=== PATIENT | male | born 1955 | race Caucasian/White ===

== ENCOUNTER 2024-06-30 12:49 | Inpatient (IN) | payer MEDICARE, OTHER, SELFPAY ==
[2024-06-27 13:29] VITALS: BP 161/79
--- NOTE | 2024-06-27 15:05 | EDRN ---
Pt arrives from triage area while this RN in CT w/ critical pt so this RN accepts care of pt at this time.
--- NOTE | 2024-06-27 15:44 | ED.GENMED ---
Addendum entered and electronically signed by Avila Sheriff DO 06/27/24 22:42:
69-year-old male who presents with double vision. Recently with a right lower lid stye and seen by his doctor started him on antibiotics and drops. He then started noticed double vision. Exam: He does have a left lid lag. He also has a slight
lag with medial movement of his left eye as well as slight asymmetry looks in a upward direction consistent with L 3rd nerve palsy. a/p: CTA neg for aneurysm, BG neg. admit for MR as per neurology
Original Note:
History of Present Illness
<Dru Bobby PA-C - Last Filed: 06/27/24 21:23>
General
Chief Complaint: Eye Problems
Source: patient
Exam Limitations: none
Time Seen by Provider: 06/27/24 15:07
History of Present Illness
History of Present Illness:
69-year-old male with stye to the right eye for several days was recently started on doxycycline pills and drops. Over the past 2 days has noticed double vision out of both eyes. He notes a slight headache. He also notes some dizziness. He
closes either eye the double vision goes away. Double vision seems to be only in certain positions or looking certain directions. No unilateral numbness or weakness or slurred speech. No fever. No other complaints
Past History
<Dru Bobby PA-C - Last Filed: 06/27/24 21:23>
Social History
Tobacco: Non-smoker
Personal:
Phy Exam
<Dru Bobby PA-C - Last Filed: 06/27/24 21:23>
Physical Exam
Physical Exam:
General: Well-appearing male no acute respiratory distress
HEENT: Normocephalic atraumatic pupils equal round reactive to light extract motions are intact. Right eye seems to be held open more so than the left eye. There is no facial asymmetry otherwise. There is a larger stye noted over the medial
aspect of the lower lid of the right eye no surrounding erythema or swelling
Neurologic exam: Good strength to the upper and lower extremities no dysarthria or aphasia no drift no visual field cut
Heart: Regular rate and rhythm
Lungs: Clear no wheeze
Course
<Dru Bobby PA-C - Last Filed: 06/27/24 21:23>
Orders/Labs/Results
Orders:
Orders
06/27/24 13:[address] [CT Head W/o Iv Contrast] Urgent
Comment:
Reason For Exam: double vision/ headache
06/27/24 17:43
CT Head & Neck Angio W/wo IV Urgent
Reason For Exam: double vision
06/27/24 18:24
Basic Metabolic Panel Urgent
Complete Blood Count/With Diff Urgent
Abnormal Lab Results
06/27/24
18:24
Monocytes % 9.6 H %
(1.7-9.3)
Glucose 105 H mg/dl
(70-99)
06/27/24 18:24
06/27/24 18:24
Vital Signs
Initial and Last Documented VS:
Initial Vital Signs
Temp Pulse Resp BP Pulse Ox
98.4 F 65 20 161/79 96
06/27/24 13:29 06/27/24 13:29 06/27/24 13:29 06/27/24 13:29 06/27/24 13:29
Last Documented Vital Signs
Temp Pulse Resp BP Pulse Ox
97.7 F 62 22 152/83 93
06/27/24 21:05 06/27/24 21:05 06/27/24 21:05 06/27/24 21:05 06/27/24 21:05
<Avila Sheriff DO - Last Filed: 06/27/24 16:42>
Orders/Labs/Results
Orders:
Orders
06/27/24 13:[address] [CT Head W/o Iv Contrast] Urgent
Comment:
Reason For Exam: double vision/ headache
06/27/24 17:43
CT Head & Neck Angio W/wo IV Urgent
Reason For Exam: double vision
06/27/24 18:24
Basic Metabolic Panel Urgent
Complete Blood Count/With Diff Urgent
Abnormal Lab Results
06/27/24
18:24
Monocytes % 9.6 H %
(1.7-9.3)
Glucose 105 H mg/dl
(70-99)
06/27/24 18:24
06/27/24 18:24
Vital Signs
Initial and Last Documented VS:
Initial Vital Signs
Temp Pulse Resp BP Pulse Ox
98.4 F 65 20 161/79 96
06/27/24 13:29 06/27/24 13:29 06/27/24 13:29 06/27/24 13:29 06/27/24 13:29
Last Documented Vital Signs
Temp Pulse Resp BP Pulse Ox
97.7 F 62 22 152/83 93
06/27/24 21:05 06/27/24 21:05 06/27/24 21:05 06/27/24 21:05 06/27/24 21:05
<Dru Bobby PA-C - Last Filed: 06/27/24 21:23>
MDM/Problems Addressed
Differential Diagnosis Includes:
Patient complains of double vision. Question this issue related to the large stye of the lower lid versus recent medication change versus CVA
No objective findings on exam of weakness or entrapment of eye muscles. No evidence of cranial nerve palsy
CT of head ordered through triage is negative.
<Dru Bobby PA-C - Last Filed: 06/27/24 21:23>
*Critical Care Note
Total Time (30-74mins, 75-104mins- exclusive of procedures): Not Applicable
<Dru Bobby PA-C - Last Filed: 06/27/24 21:23>
Update Note
Update Note:
CT head negative discussed with emergency room attending. Ordered CTA of head and neck which was also reviewed as no acute findings. Incidentally noted there is a 2 cm rim calcified lesion in the substernal chest. Discussed with neurology. Given
the new onset diplopia and exam findings suspicious of cranial nerve III palsy will admit to hospital for further workup including MRI
ED Attending Note
<Dru Bobby PA-C - Last Filed: 06/27/24 21:23>
-
Portions of this chart may have been created with voice recognition software.� Occasional wrong word or��sound alike� substitutions may have occurred due to the inherent limitations of voice recognition software.
<Avila Sheriff DO - Last Filed: 06/27/24 16:42>
ED Attending Note
Patient seen and examined by attending physician: Yes
I performed the substantive portion of visit, reviewed & personally made and approve the management plan that is documented in note by myself or TAM.: Yes
Discharge Plan
Departure
Patient Disposition: Admit
Date of Disposition: 06/27/24
Time of Disposition: 21:22
Admit to: Telemetry
Presentation/result/management discussed w/ accepting MD/: Hospitalist
Discharge Problem:
Cranial nerve III palsy
Prescriptions:
No Action
No Current Medications
Referrals:
Raheem Valladares DO [Family Provider] -
Interventions
Interventions:
*Risk Screen - Suicide Last Done: 06/27/24 13:29
*General Assessment Last Done: 06/27/24 16:21
*Neglect/Abuse Screening Last Done: 06/27/24 13:29
ED- Fall Risk Assessment Last Done: 06/27/24 16:23
*ED COVID-19 Vaccine History Last Done: 06/27/24 16:21
Discharge Date and Time
Print Language: SURINAMESE
[2024-06-27 16:20] VITALS: BMI 29.6
[2024-06-27 16:23] VITALS: BP 141/80
[2024-06-27 18:29] LABS: % Basophils 0.7 % (0-2); % Eosinophils 4.8 % (0-6); % Immature Granulocytes 0.3 % (0-0.5); % Monocytes 9.6 % (1.7-9.3); % Neutrophils 50.6 % (42.2-75.2); Absolute Eosinophils 0.3 10^3/uL (0-0.7); Absolute Monocytes 0.6 10^3/uL (0.1-0.6); Hematocrit 44.5 % (39.0-52.0); Hemoglobin 14.7 g/dL (13.0-18.0); Mean Corpuscular Hgb 30.6 pg (27.0-31.0); Mean Corpuscular Volume 92.7 fL (80.0-94.0); Mean Platelet Volume 9.3 fL (7.4-10.4); Nucleated Red Blood Cells % 0 % (-); Platelet Count 232 10^3/uL (130-400); Red Cell Dist. Width 12.9 % (11.5-14.5); White Blood Cell Count 5.9 10^3/uL (4.8-10.8)
[2024-06-27 19:08] LABS: Blood Urea Nitrogen 19 mg/dl (9-20); Calcium 9.4 mg/dl (8.4-10.2); Carbon Dioxide 27 mmol/L (22-30); Chloride 101 mmol/L (98-107); Estimated Creatinine Clearance 114 ml/min; Glucose 105 mg/dl (70-99); Sodium 135 mmol/L (135-145); eGFR > 60.00
[2024-06-27 21:05] VITALS: BP 152/83
--- NOTE | 2024-06-27 22:37 | HPS.HSE ---
Family Physician
-
Family Physician: Raheem Valladares
Chief Complaint
-
double vision
History of Present Illness
HPI
69M Non smoker , Otherwise healthy seen at ER
- stye to the right eye for several days was recently started on doxycycline pills and drops.
- Over the past 2 days has noticed double vision out of both eyes.
- notes a slight headache and some dizziness.
- the double vision goes away with closed eyes
- Double vision seems to be only in certain positions or looking certain directions.
ROS
No unilateral numbness or weakness or slurred speech.
No fever.
No other complaints
Medical History
Past Medical History
Past Medical History: Reports None
Past Surgical History: Reports None
Social History
Tobacco: Non-smoker
Alcohol: None
Drug: None
Family History
Family History: Not pertinent
Allergies / Home Medications
Allergies reflects when Allergies were last updated in [facility].
Home Medications with original date entered in [facility]
Allergy/Medication List:
Allergies
Allergy/AdvReac Type Severity Reaction Status Date / Time
Penicillins Allergy Hives Verified 06/27/24 13:29
Home Medications
doxycycline hyclate 100 mg capsule 100 mg PO BID 06/27/24
lysine 1,000 mg tablet 1,000 mg PO DAILY 06/27/24
ofloxacin 0.3 % eye drops 2 drp RIGHT EYE QID 06/27/24
Review of Systems
-
Constitutional: Reports No Symptoms
EENT: Reports See HPI
Respiratory: Reports No Symptoms
Cardiac: Reports No Symptoms
Abdomen/GI: Reports No Symptoms
: Reports No Symptoms
Musculoskeletal: Reports No Symptoms
Skin: Reports No Symptoms
Neurological: Reports No Symptoms
Endocrine: Reports No Symptoms
Hematologic/Lymphatic: Reports No Symptoms
Psych: Reports No Symptoms
Physical Exam
Vital Signs
Vital Signs
Temp Pulse Resp BP Pulse Ox
97.7 F 62 22 152/83 93
06/27/24 21:05 06/27/24 21:05 06/27/24 21:05 06/27/24 21:05 06/27/24 21:05
Physical Exam
General: Well Developed, Well Nourished and No Apparent Distress
HEENT: Other (- Normocephalic atraumatic - pupils equal round reactive to light extract motions are intact. - Right eye: to be held open more so than the left eye. - No facial asymmetry otherwise. - There is a larger stye noted over the
medial aspect of the lower lid of the right eye no surrounding erythem)
Respiratory: Clear
Cardiac: S1/S2 and Regular Rhythm; No Murmur or Rub
GI: Soft, Non Tender, Non Distended and Normal Bowel Sounds; No Organomegaly
Rectal: Deferred by Provider
Musculoskeletal: No Clubbing, No Cyanosis and No Edema
Skin: No Rash
Neuro: Nonfocal/grossly intact
Laboratory Results
-
06/27/24 18:24
06/27/24 18:24
Laboratory Results
Total Bilirubin Cancelled 06/27/24 18:24
AST Cancelled 06/27/24 18:24
ALT Cancelled 06/27/24 18:24
Alkaline Phosphatase Cancelled 06/27/24 18:24
Data Reviewed
-
CT Scan: Report Reviewed by me
Lab Data: Labs Reviewed by me
Impression/Plan
-
Data
Abnormal Lab Results
24
18:24
Monocytes % 9.6 H
Glucose 105 H
Unremarkable CBC and CMP
BG [address] Head W/o Iv Contrast
- No acute intracranial abnormality.
CT Head & Neck Angio W/wo IV
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 The etiology of this mass is uncertain and this may be secondary to trauma.
The study is otherwise normal
Last hospitalist admission was in 2012
ASSESSMENT & PLAN
New onset Lt eye diplopia with ptosis
Concern for cranial nerve III palsy
- MRI Brain in AM suggested by Neuro d/w ER attd
- Lipids , A1C
- Hold off on ASA
- Neuro consulted
Hordeolum (stye) of Rt Eye lower lid with yellow exudate
- warm wet clot compression 10 Mins - 4times daily
- AVOID attempt to squeeze the stye
- 0.3 % Ofloxacin oint
DVT Px: SCD
Code: Full
Obs TLM
--- NOTE | 2024-06-27 23:30 | PTCARENOTE ---
Patient admitted to unit for concern for cranial III Nv palsy & R eye stye. Patient is AAO x3. Monitored on tele. Neuro checks/NIH assessment q4h for 24 h. Reviewed home meds & allergies. Patient is ambulatory at baseline & demonstrates safety. No
skin issues at this time.
[2024-06-28] VITALS (8 sets, daily range): BP systolic 138–177; BP diastolic 74–95; BMI 28.7
[2024-06-28 07:28] LABS: HDL Cholesterol 46 mg/dl; LDL Cholesterol, Calculated 116 mg/dl; Total Cholesterol 179 mg/dl (50-199); Triglyceride 88 mg/dl (10-149); Very Low Density Lipoprotein 17 mg/dl (0-30)
--- NOTE | 2024-06-28 08:33 | CON.NEURO ---
Neuro Assessment/Plan
Assessment
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
CT head was unremarkable
Patient with acute onset diplopia and findings of left eye ptosis with reduced upgaze in the left eye, and intact pupillary size
Most likely secondary to myasthenia gravis, potentially unmasked from acute exposure to doxycycline although that is not a typical agent producing myasthenic symptoms. Differential diagnosis would include Lambert-Eaton myasthenic syndrome with the
patient experiencing the substernal mass of unknown etiology
Plan
Check MRI of brain as planned (completed and does not demonstrate significant abnormality)
Check CT of chest due to the substernal mass of unclear etiology, potentially thymoma or other etiology
Restart patient's usual apixaban
Initiate pyridostigmine 60 mg 3 times a day if icepack challenge demonstrates improvement in double vision
Reconsider use of doxycycline based on the above
Check acetylcholine receptor antibodies
Consider initiation of lipid-lowering agent based on the patient's LDL elevation despite the possibility of a myasthenic syndrome
Rehabilitation evaluations
Goal of normotension
DVT prophylaxis
Will follow
Consultation
Order
Date of Consultation: 06/28/24
Requesting Provider: Hospitalists
Reason for Consult: Diplopia
Subjective/Objective
Subjective Data
Date of Service: June 28, 2024
Patient presented to this hospital's emergency department yesterday due to sudden onset diplopia and headache. The patient was initiated days prior to presentation on doxycycline due to a stye in the right eye. He reports that diplopia is worse
with looking upwards and not present with looking downwards. He suggest that the problem is worse in the morning then later in the day. No prior episodes which were similar. No known other modifying factors.
Patient's headache is described as having started days ago on the left side of the head and continuing. The discomfort is described as mild, although unusual as the patient does not typically experience headaches. Patient does describe himself as
having had a vaccination against influenza 1 month ago.
Objective Data
Vital Signs
Temp Pulse Resp BP Pulse Ox
36.6 C 56 18 159/95 97
06/28/24 03:48 06/28/24 03:48 06/28/24 03:48 06/28/24 03:48 06/28/24 03:48
Lab Results
06/27/24 18:24
06/27/24 18:24
Sodium 135 mmol/L (135-145) 06/27/24 18:24
Potassium mmol/L (3.5-5.1) 06/27/24 18:24
BUN 19 mg/dl (9-20) 06/27/24 18:24
Glucose 105 mg/dl (70-99) H 06/27/24 18:24
Calcium 9.4 mg/dl (8.4-10.2) 06/27/24 18:24
LDL Cholesterol, Calc 116 mg/dl 06/28/24 06:32
Patient Allergies
Penicillins Allergy (Verified 06/27/24 13:29)
Hives
Review of Systems
-
History Source: Patient
All other systems: Reviewed and negative
EENT: Blurry Vision; Negative Swallowing Difficulty
Respiratory: Negative Trouble Breathing
Cardiac: Negative Chest Pain
Abdomen/GI: Negative Incontinence of Stool
Genitourinary: Negative Incontinence
Musculoskeletal: Negative Back Pain or Neck Pain
Skin: Negative Rash
Neuro: Headache (started ); Negative Dizzy
Physical Exam
-
General: No Apparent Distress and Appears Stated Age
Eyes: Round OU, [place] Conjunctivae and No Ptosis
HEENT: Anicteric and Moist Mucous Membranes
Neck: Full Range of Motion
Respiratory: No Dyspnea
Cardiac: No JVD
GI: Non-distended
Skin: Unremarkable
Extremities: No Clubbing, No Cyanosis and No Edema
Psych: Intact Judgement/Insight
Extended Neurological Exam
Mood & Affect: Mood Unremarkable and Affect Unremarkable
Attention Span & Concentration: Awake, Alert, Interactive and Other (No difficulty with one-step requests)
Memory: Unremarkable
Tremor: Hand Tremor Absent and Head Tremor Absent
Speech: Quality Unremarkable and Quantity Unremarkable
Cranial Nerve II: Left Eye: Pupillary Size Unremarkable and Visual Mahan Grossly Intact
Cranial Nerve II: Right Eye: Pupillary Size Unremarkable and Visual Mahan Grossly Intact
Cranial Nerves III, IV, : Extraocular Movement: Ptosis on Left, Reduced (Left eye upgaze by approximately 50%) and Otherwise Unremarkable; Negative Ptosis on Right
Cranial Nerve VII: Facial Symmetry: Normal Facial Symmetry
Cranial Nerve VIII: Hearing: Unremarkable Hearing to Normal Conversational Volume
Cranial Nerve XI: Shoulder Shrug: Unremarkable
Muscle Strength, Overall: Full in Upper Extremities
Muscle Bulk & Tone: Bulk Unremarkable and Tone Unremarkable
Pronator Drift: No Drift in Upper Extremities
Touch Sensation: Unremarkable
Coordination: Reaches for Objects without Difficulty
Gait & Station: Unremarkable Arm Swing; Negative Wide Based
Data Reviewed
-
CT-A: Report Reviewed
CT Head: Report Reviewed
MRI Head: Report Reviewed and Image Reviewed
Labs: Ordered, Pending and Report Reviewed
Reviewed with: Physician and Patient
Old Records: Summarized
Medications
-
Active Medications
Generic Name Dose Route Start Last Admin
Trade Name Freq PRN Reason Stop Dose Admin
Acetaminophen 650 mg 06/28/24 00:22
Acetaminophen 650 Mg Rectal Suppository RECTAL 07/26/24 00:21
Q4HPRN PRN
HASKINS, mild pain, or temp >100.4F
Acetaminophen 650 mg 06/28/24 00:22
Acetaminophen 325 Mg Tablet PO 07/26/24 00:21
Q4HPRN PRN
HASKINS, mild pain, or temp >100.4F
Doxycycline Hyclate 100 mg 06/28/24 08:00
Doxycycline 100 Mg Capsule PO
BID MILLER
Ofloxacin 2 drop 06/28/24 08:00
Ofloxacin 0.3% (Ophthalmic Solution) 5 Ml Bottle RIGHT EYE 07/26/24 07:59
QID MILLER
Sodium Chloride 0 flush 06/28/24 01:00
Sodium Chloride 0.9% (Flush) Syringe IV 07/26/24 00:59
PER PROTOCOL MILLER
Home Medications
�Medication �Instructions �Recorded
apixaban 2.5 mg tablet (Eliquis) 2.5 mg PO BID Heart 06/27/24
Disease/Condition
doxycycline hyclate 100 mg capsule 100 mg PO BID Infection 06/27/24
lysine 1,000 mg tablet 1,000 mg PO DAILY Supplement 06/27/24
ofloxacin 0.3 % eye drops 2 drp RIGHT EYE QID Eye Condition 06/27/24
Past History
Past History
ED Past Medical History: Other (Esophageal stenosis with dilatation procedures beginning in 1992, DVT 2012, varicose veins)
Social History
Tobacco: Non-smoker
Personal:
Family History
Family History: Other (Reviewed and noncontributory)
[2024-06-28] MEDS: OCUFLOX 2 DROP RIGHT EYE ×4 (08:34→21:25)
[2024-06-28 09:29] LABS: ALT (SGPT) 30 U/L (0-50); AST (SGOT) 24 U/L (17-59); Albumin 4.2 g/dl (3.5-5.0); Alkaline Phosphatase 66 U/L (38-126); Blood Urea Nitrogen 16 mg/dl (9-20); Calcium 9.2 mg/dl (8.4-10.2); Carbon Dioxide 27 mmol/L (22-30); Chloride 102 mmol/L (98-107); Estimated Creatinine Clearance 100 ml/min; Glucose 142 mg/dl (70-99); Potassium 4.5 mmol/L (3.5-5.1); Sodium 137 mmol/L (135-145); Total Bilirubin 1.4 mg/dl (0.2-1.3); Total Protein 6.9 g/dl (6.3-8.2); eGFR > 60.00
[2024-06-28 09:51] LABS: Erythrocyte Sed Rate 3 mm/hour (0-20)
[2024-06-28 12:00] LABS: TSH Reflex To Free T4 1.93 uIU/ml (0.47-4.68)
--- NOTE | 2024-06-28 12:07 | CM ---
CM reviewed chart, consult received for stroke/tia. Patient seen bedside, initial assessment completed. Patient resides with his in a split level home, no steps to enter. Patient denies DME, VN, or SNF. Patient confirms PCP Raheem Valladares,
pharmacy [facility], confirms prescription coverage. Patient denies insecurities at home. FOY form verbally reviewed, provided with copy, placed in chart. CM will continue to follow for all discharge planning needs.
Plan; home no needs anticipated.
--- NOTE | 2024-06-28 12:14 | PTOTSP ---
Speech Therapy
Presentation: Patient was oriented and willing to participate. Patient's speech, language and cognition appeared to be WNL. Patient denied any difficulty other than his double vision.
Swallowing Function: Patient was observed with several bites of cracker and sips of thin liquids (straw) in which patient appeared to tolerate as he did not exhibit any overt clinical s/sx of aspiration or difficulty with mastication/ manipulation.
Patient denied any dysphagia complaints.
Per RN, patient tolerated medications whole with thin liquids.
Recommendations:
1) Regular consistency solids and thin liquids
2) Standard aspiration precautions
3) Medications as tolerated
Plan: No further LASER/ELECTRO OPTICS TECHNICIAN intervention is indicated at this time; LASER/ELECTRO OPTICS TECHNICIAN will sign off.
[2024-06-28 13:39] LABS: Folate 8.1 ng/ml (2.76-20); Vitamin B12 289 pg/ml (239-931)
--- NOTE | 2024-06-28 14:01 | W.PN.HOSP.TC ---
Today's Communication/Plan
-
seeplan above
Assessment / Plan
Assessment / Plan
New onset Lt eye diplopia with ptosis
Concern for cranial nerve III palsy vs MG
- MRI Brain no stroke
- Lipids , A1C
- Hold off on ASA
- Neuro input noted
- Getting ACH ab testing and starting on pyridostigmine
Hordeolum (stye) of Rt Eye lower lid with yellow exudate
- warm wet clot compression 10 Mins - 4times daily
- AVOID attempt to squeeze the stye
- 0.3 % Ofloxacin oint
- Hold doxy per neuro
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
DVT Px: SCD
Code: Full
Obs TLM
Anticipated Discharge: Within 24 hours
Subjective/Interval History
-
Date of Service: June 28, 2024
Still some diplopia looking upwards noted in left eye
No new symptoms
Denies swallowing difficulties
Objective Data
-
Labs:
Laboratory Results
06/28/24
06:32
Sodium 137
Potassium 4.5
Chloride 102
Carbon Dioxide 27
BUN 16
Creatinine 0.8
Glucose 142 H
Calcium 9.2
Total Bilirubin 1.4 H
AST 24
ALT 30
Alkaline Phosphatase 66
Vital Signs:
Vital Signs
Temp Pulse Resp BP Pulse Ox
97.8 F 64 16 152/87 96
06/28/24 11:56 06/28/24 11:56 06/28/24 11:56 06/28/24 11:56 06/28/24 11:56
I&O
06/27/24 06/28/24 06/29/24
06:59 06:59 06:59
Intake Total 240 / 240
Balance 240 / 240
Review of Systems
-
Constitutional: Denies Fever
Respiratory: Denies Trouble Breathing
Cardiac: Denies Chest Pain
Neuro: Denies Dizzy or Headache
Physical Exam
-
General: Comfortable
HEENT: Moist Mucous Membranes
Respiratory: Non Labored Respirations; Negative Accessory Resp Muscle Use
Cardiac: Regular Rhythm and S1/S2
Neuro: AO x 3, No Motor Deficits and Other (diplopia noted looing to right upper quadrant with eyes open;no nystagmus)
Psych: Calm; Negative Confused
Data Reviewed
-
MRI: Report Reviewed by me (MRI head neg)
[2024-06-28] MEDS: MESTINON 60 MG PO ×3 (14:27→21:25)
[2024-06-29] VITALS (12 sets, daily range): BP systolic 125–155; BP diastolic 62–89
[2024-06-29] MEDS: OCUFLOX 2 DROP RIGHT EYE ×4 (08:41→22:07)
[2024-06-29] MEDS: MESTINON 60 MG PO (08:41)
--- NOTE | 2024-06-29 09:04 | W.PN.NEURO.1 ---
Today's Communication / Plan
-
Will request cardiothoracic surgery evaluation due to the possibility of thymoma with need of resection
May need to hold patient's usual apixaban if the patient undergoes thoracic surgery
Initiated pyridostigmine 60 mg 3 times a day, increase to dose of 90 mg
Will request EMG study with repetitive stimulation to determine if the patient is experiencing either an improvement of strength with stimulation or decrement
Neuro Assessment/Plan
Assessment
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
CT head was unremarkable
Patient with acute onset diplopia and findings of left eye ptosis with reduced upgaze in the left eye, and intact pupillary size
Most likely secondary to myasthenia gravis, potentially unmasked from acute exposure to doxycycline although that is not a typical agent producing myasthenic symptoms. Differential diagnosis would include Lambert-Eaton myasthenic syndrome (LEMS)
with the patient experiencing the substernal mass of unknown etiology
Icepack challenge demonstrated no improvement in double vision
CT of chest suggested substernal mass of unclear etiology, potentially thymoma or other etiology
Plan
Will request cardiothoracic surgery evaluation due to the possibility of thymoma with need of resection
May need to hold patient's usual apixaban if the patient undergoes thoracic surgery
Initiated pyridostigmine 60 mg 3 times a day, increase to dose of 90 mg
Will request EMG study with repetitive stimulation to determine if the patient is experiencing either an improvement of strength with stimulation or decrement
Await acetylcholine receptor antibodies, add VGCC for ? LEMS
Started vitamin B12 replacement due to low level
Consider initiation of lipid-lowering agent based on the patient's LDL elevation despite the possibility of a myasthenic syndrome
Will follow
Subjective/Objective
Subjective Data
Date of Service: June 29, 2024
Worse in AM compared with PM, unchanged
Straining sensation behind eye has improved.
Objective Data
Vital Signs
Temp Pulse Resp BP Pulse Ox
36.9 C 62 16 134/89 97
06/29/24 07:00 06/29/24 07:00 06/29/24 07:00 06/29/24 07:00 06/29/24 07:00
Lab Results
06/27/24 18:24
06/28/24 06:32
Sodium 137 mmol/L (135-145) 06/28/24 06:32
Potassium 4.5 mmol/L (3.5-5.1) 06/28/24 06:32
BUN 16 mg/dl (9-20) 06/28/24 06:32
Glucose 142 mg/dl (70-99) H 06/28/24 06:32
Calcium 9.2 mg/dl (8.4-10.2) 06/28/24 06:32
LDL Cholesterol, Calc 116 mg/dl 06/28/24 06:32
Vitamin B12 289 pg/ml (239-931) 06/28/24 06:32
Patient Allergies
Penicillins Allergy (Verified 06/27/24 13:29)
Hives
Review of Systems
-
History Source: Patient
All other systems: Reviewed and negative
EENT: Other (diplopia); Negative Decreased Vision or Swallowing Difficulty
Respiratory: Negative Trouble Breathing
Cardiac: Negative Chest Pain
Abdomen/GI: Negative Incontinence of Stool
Genitourinary: Negative Incontinence
Neuro: Negative Dizzy or Headache
Physical Exam
-
General: No Apparent Distress and Appears Stated Age
Eyes: Round OU, [place] Conjunctivae and No Ptosis
HEENT: Anicteric and Moist Mucous Membranes
Neck: Full Range of Motion
Respiratory: No Dyspnea
Cardiac: No JVD
GI: Non-distended
Skin: Unremarkable
Extremities: No Clubbing, No Cyanosis and No Edema
Psych: Intact Judgement/Insight
Extended Neurological Exam
Mood & Affect: Mood Unremarkable and Affect Unremarkable
Attention Span & Concentration: Awake, Alert, Interactive and No Difficulty with 2 Step Request
Memory: Unremarkable
Tremor: Hand Tremor Absent and Head Tremor Absent
Speech: Quality Unremarkable and Quantity Unremarkable
Cranial Nerve II: Left Eye: Pupillary Size Unremarkable and Visual Mahan Grossly Intact
Cranial Nerve II: Right Eye: Pupillary Size Unremarkable and Visual Mahan Grossly Intact
Cranial Nerves III, IV, : Extraocular Movement: Ptosis on Left, Reduced (Left eye upgaze by approximately 25%) and Otherwise Unremarkable; Negative Ptosis on Right
Cranial Nerve VII: Facial Symmetry: Normal Facial Symmetry
Cranial Nerve VIII: Hearing: Unremarkable Hearing to Normal Conversational Volume
Cranial Nerve XI: Shoulder Shrug: Unremarkable
Muscle Strength, Overall: Full in Upper Extremities and Other (Full in neck extensors and neck flexors)
Muscle Bulk & Tone: Bulk Unremarkable and Tone Unremarkable
Touch Sensation: Unremarkable
Coordination: Reaches for Objects without Difficulty
Data Reviewed
-
CT-A: Report Reviewed
MRI Head: Report Reviewed and Image Reviewed
Labs: Report Reviewed
Reviewed with: Physician, Patient and Family
Old Records: Summarized
Past History
Past History
ED Past Medical History: Other (Esophageal stenosis with dilatation procedures beginning in 1992, DVT 2012, varicose veins)
Social History
Tobacco: Non-smoker
Personal:
Family History
Family History: Other (Reviewed and noncontributory)
Medications
-
Medications:
Generic Name Dose Route Start Last Admin
Trade Name Freq PRN Reason Stop Dose Admin
Acetaminophen 650 mg 06/28/24 00:22
Acetaminophen 650 Mg Rectal Suppository RECTAL 07/26/24 00:21
Q4HPRN PRN
HASKINS, mild pain, or temp >100.4F
Acetaminophen 650 mg 06/28/24 00:22
Acetaminophen 325 Mg Tablet PO 07/26/24 00:21
Q4HPRN PRN
HASKINS, mild pain, or temp >100.4F
Doxycycline Hyclate 100 mg 06/28/24 08:00 06/28/24 08:46
Doxycycline 100 Mg Capsule PO Not Given
BID MILLER
Ofloxacin 2 drop 06/28/24 08:00 06/29/24 08:41
Ofloxacin 0.3% (Ophthalmic Solution) 5 Ml Bottle RIGHT EYE 07/26/24 07:59 2 drop
QID MILLER Administration
Pyridostigmine [place] 60 mg 06/28/24 18:00 06/29/24 08:41
Pyridostigmine 60 Mg Tablet PO 07/26/24 17:59 60 mg
QID MILLER Administration
Sodium Chloride 0 flush 06/28/24 01:00
Sodium Chloride 0.9% (Flush) Syringe IV 07/26/24 00:59
PER PROTOCOL MILLER
[2024-06-29 10:35] LABS: Glycohemoglobin (HgbA1c) 6.5 % (4.0-5.6)
--- NOTE | 2024-06-29 11:52 | CONSULT.CT ---
Consultation
-
Date/Time Consultation Requested: 06/29/24
Date/Time Consultation Performed: 06/29/24
Requesting Provider: 1200
Performing Provider: Liz Kang PA-C
Reason for Consultation: Mediastinal mass, possible thymoma
Patient History
Physicians
Family Physician: Dr. Raheem Valladares MD.
Outpatient Balancer: None
Inpatient Balancer: None
History of Present Illness
Vascular Surgeon: Dr. David Foster
Patient is extremely pleasant 69-year-old male with PMH significant for DVT of his left lower extremity in 2012 treated with Xarelto, bilateral varicose veins status post left leg vein stripping performed on 05/[address] Foster, and
esophageal stenosis requiring multiple endoscopies and dilation, most recent 2009.
Patient reports complaints of headache and diplopia starting on , 06/26/2024. He was started on doxycycline secondary to a stye in his right eye a few days prior. He also noted that the diplopia was worse with upward gaze. Patient called
his primary care physician on Sunday, 06/27/20202023 and was referred to the emergency department at [facility]. Workup began with a CT of the head which showed no intracranial abnormality and a CTA of the head and neck revealing a 2 cm
rim calcified substernal mass in the superior mediastinum compressing and narrowing the left subclavian vein. Subsequent CT of the chest with IV contrast revealed a 2.9 cm partially calcified soft tissue attenuation lesion in the anterior superior
mediastinum.
Patient was admitted for further workup and seen in consultation by neurology. With acute onset of diplopia and finding of left eye ptosis with reduced upward gaze and left eye diagnosis points most likely to myasthenia gravis. Patient is
currently being treated with by rivastigmine, immunoglobulin, and high-dose steroids. His Eliquis was resumed on 06/29/2024. CT surgery was consulted to evaluate mediastinal mass for possible thymoma and evaluation for resection.
Past Medical History
Past Medical History: Other
DVT of his left lower extremity in 2012 treated with Xarelto
Bilateral varicose veins status post left leg vein stripping performed on 05/[address] Foster
Esophageal stenosis requiring multiple endoscopies and dilation, most recent 2009.
Past Surgical History
Past Surgical History: Other
Left leg vein stripping performed on 05/[address] Foster
Dental History
Noncontributory
Family History
Mother: at Age (68) and Cause of (Lung cancer)
Father: at Age (70s) and Cause of (Rupture of AAA)
Social History
Alcohol: Occasional (3 beers per week)
Drug: None
Tobacco: Non-Smoker
Personal: (Lives with , has 3 children)
Living: With Spouse
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
Allergies
Allergy/AdvReac Type Severity Reaction Status Date / Time
Penicillins Allergy Hives Verified 06/27/24 13:29
Home Medications
�Medication �Instructions �Recorded �Confirmed �Type
apixaban 2.5 mg tablet (Eliquis) 2.5 mg PO BID Heart 06/27/24 06/27/24 History
Disease/Condition
doxycycline hyclate 100 mg capsule 100 mg PO BID Infection 06/27/24 06/27/24 History
lysine 1,000 mg tablet 1,000 mg PO DAILY Supplement 06/27/24 06/27/24 History
ofloxacin 0.3 % eye drops 2 drp RIGHT EYE QID Eye Condition 06/27/24 06/27/24 History
Review of Systems
-
History Source: Patient
General: Denies Fever, Weight Gain, Weight Loss, Fatigue or Night Sweats
HEENT: Reports Visual Changes (Ptosis on left eye with reduced upward gaze) and Dysphagia (History of esophageal stenosis); Denies Sore Throat
Respiratory: Denies SOB, BARKLEY, Cough, Asthma or PND
Cardiac: Denies Chest Pain, Known Vascular Disease, Palpitations, Nausea, Vomiting or Edema
Abdomen/GI: Denies Abdominal Pain, Reflux, Indigestion, Nausea, Vomiting, Diarrhea or BRBPR
: Denies Dysuria, Frequency, Incontinence or Hematuria
Musculoskeletal: Denies Arthralgias, Joint Pain or Edema
Skin: Denies Itching or Rash
Neurological: Reports Headaches; Denies CVA, TIA, Syncope, Dizzy, Numbness or Seizures
Vascular: Reports PVD (History of bilateral varicose veins status post left leg vein stripping)
Physical Exam
Vital Signs
Temp 98.6 F 06/29/24 11:00
Temp route: Oral 06/29/24 11:00
Pulse 58 06/29/24 11:00
Rhythm: Sinus bradycardia 06/28/24 01:20
Resp Rate 20 06/29/24 11:00
Blood pressure 139/72 06/29/24 11:00
Blood pressure extremity used: Right upper arm 06/29/24 11:00
Position: Lying 06/29/24 11:00
SaO2 94 06/29/24 11:00
Oxygen Mode of Delivery Room air 06/29/24 11:00
Can the patient verbally communicate their pain? Yes 06/28/24 20:00
Actual Weight 217 lb 9.6 oz 06/28/24 00:23
Body Mass Index (BMI) 28.7 06/28/24 00:23
Labs
06/27/24 18:24
06/28/24 06:32
Hemoglobin A1c 6.5 % (4.0-5.6) H 06/28/24 06:32
Exam
General: Well Developed, Well Nourished and No Apparent Distress
HEENT: Normocephalic, Anicteric, Moist Mucous Membranes, Atraumatic, PERRLA and Other (Ptosis on the left with reduced left upward gaze)
Neck: Trachea Midline; Negative JVD
Respiratory: Clear; Negative Wheezes, Crackles, Rhonchi or Accessory Muscle Use
Cardiac: S1/S2 and Regular Rhythm; Negative Murmur, Rub or Gallop
GI: Soft, Non Tender, Non Distended and Normal Bowel Sounds
Rectal: Deferred by Provider
Skin: Warm and Dry; Negative Rash
Neuro: AO x 3, No Motor Deficits and CN X-XII Intact
Extremities: Negative Upper Level Edema, Lower Level Edema, Upper Level Cyanosis, Lower Level Cyanosis, Upper Level Clubbing or Lower Level Clubbing
Psych: Calm
Assessment / Plan
-
Assessment:
69-year-old male with PMH significant for:
DVT of his left lower extremity in 2012 treated with Xarelto
Bilateral varicose veins status post left leg vein stripping performed on 05/[address] Foster
Esophageal stenosis requiring multiple endoscopies and dilation, most recent 2009
Now with newly diagnosed:
2.9 cm partially calcified soft tissue attenuation lesion in the anterior superior mediastinum
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
Plan:
Patient's case will be discussed with attending physician Dr. Fazal Sanchez MD.
Further details regarding patients plan and possible intervention will be determined after Dr. Sanchez's full evaluation.
2.5 mg Eliquis BID resumed on 06/29/24at ~12:00 pm
Continue medical management per primary service.
Neurology following, input appreciated.
[2024-06-29] MEDS: SOLU-MEDROL 258 MG IV (12:43)
[2024-06-29] MEDS: ELIQUIS 2.5 MG PO ×2 (12:43→20:03)
[2024-06-29] MEDS: GAMMAGARD 300 IV (14:04)
[2024-06-29] MEDS: MESTINON 90 MG PO ×3 (14:05→22:05)
--- NOTE | 2024-06-29 14:35 | W.PN.HOSP.TC ---
Today's Communication/Plan
-
Consult onc
Assessment / Plan
Assessment / Plan
New onset Lt eye diplopia with ptosis
Concern for more for MG per neuro
- MRI Brain no stroke
- Hold off on ASA
- Neuro input noted
- Getting A[facility] ab testing and started on pyridostigmine
- Today started on IVIG
Hordeolum (stye) of Rt Eye lower lid with yellow exudate
- warm wet clot compression 10 Mins - 4times daily
- AVOID attempt to squeeze the stye
- 0.3 % Ofloxacin oint
- Hold doxy per neuro
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 With concern for MG, will consult Oncology for eval of the mass to rule out thymoma.
DVT Px: SCD
Code: Full
Obs TLM
Anticipated Discharge: > 48 hours
Subjective/Interval History
-
Date of Service: June 29, 2024
Patient still with the left eye symptom of diplopia on looking up. No new symptoms.
Objective Data
-
Vital Signs:
Vital Signs
Temp Pulse Resp BP Pulse Ox
98.6 F 60 20 155/86 94
06/29/24 11:00 06/29/24 13:58 06/29/24 11:00 06/29/24 13:58 06/29/24 11:00
I&O
06/28/24 06/29/24 06/30/24
06:59 06:59 06:59
Intake Total 240 / 240 680 / 680
Balance 240 / 240 680 / 680
Review of Systems
-
Constitutional: Denies Fever
EENT: Denies Sore Throat
Respiratory: Denies Cough or Trouble Breathing
Cardiac: Denies Chest Pain
Abdomen/GI: Denies Abdominal Pain, Nausea or Vomiting
Neuro: Denies Dizzy
Physical Exam
-
General: Comfortable
Respiratory: Non Labored Respirations; Negative Accessory Resp Muscle Use
Cardiac: Regular Rhythm and S1/S2
GI: Soft
Neuro: AO x 3 and No Motor Deficits; Negative Tremors, Slurred Speech or Facial Droop
Psych: Calm; Negative Confused
Data Reviewed
-
CT Scan: Report Reviewed by me (ct chest)
Labs: Labs Reviewed by me
--- NOTE | 2024-06-29 17:20 | PTCARENOTE ---
IVIG completed. No complaints from pt. VS remained stable. SR on monitor.
[2024-06-29] MEDS: PEPCID 40 MG PO (22:05)
[2024-06-30] VITALS (12 sets, daily range): BP systolic 139–170; BP diastolic 73–90
[2024-06-30] MEDS: ELIQUIS 2.5 MG PO ×2 (08:21→20:57)
[2024-06-30] MEDS: MESTINON 90 MG PO ×4 (08:21→22:25)
[2024-06-30] MEDS: OCUFLOX 2 DROP RIGHT EYE ×4 (08:26→22:25)
--- NOTE | 2024-06-30 09:25 | W.PN.NEURO.1 ---
Today's Communication / Plan
-
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
Continue methylprednisolone 1 g IV and immunoglobulin 400 mg/kg initiated 06/29/2024
Continue pyridostigmine 90 mg 3 times a day
Neuro Assessment/Plan
Assessment
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
CT head was unremarkable
Patient with acute onset diplopia and findings of left eye ptosis with reduced upgaze in the left eye, and intact pupillary size
Most likely secondary to myasthenia gravis, potentially unmasked from acute exposure to doxycycline although that is not a typical agent producing myasthenic symptoms. Differential diagnosis would include Lambert-Eaton myasthenic syndrome (LEMS)
with the patient experiencing the substernal mass of unknown etiology
Icepack challenge demonstrated no improvement in double vision
CT of chest suggested substernal mass of unclear etiology, potentially thymoma or other etiology
EMG study reportedly with repetitive stimulation was normal
Plan
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
Continue methylprednisolone 1 g IV and immunoglobulin 400 mg/kg initiated 06/29/2024
Continue pyridostigmine 90 mg 3 times a day
Await acetylcholine receptor antibodies, add VGCC for ? LEMS
Started vitamin B12 replacement due to low level
Consider initiation of lipid-lowering agent based on the patient's LDL elevation despite the possibility of a myasthenic syndrome
Will follow
Subjective/Objective
Subjective Data
Date of Service: June 30, 2024
Patient reports significant improvement in diplopia. Is tolerating newly initiated immunoglobulin and methylprednisolone as well as increased dose of pyridostigmine.
Objective Data
Vital Signs
Temp Pulse Resp BP Pulse Ox
36.5 C 64 18 139/90 94
06/30/24 07:00 06/30/24 07:00 06/30/24 07:00 06/30/24 07:00 06/30/24 07:00
Lab Results
06/27/24 18:24
06/28/24 06:32
Sodium 137 mmol/L (135-145) 06/28/24 06:32
Potassium 4.5 mmol/L (3.5-5.1) 06/28/24 06:32
BUN 16 mg/dl (9-20) 06/28/24 06:32
Glucose 142 mg/dl (70-99) H 06/28/24 06:32
Calcium 9.2 mg/dl (8.4-10.2) 06/28/24 06:32
LDL Cholesterol, Calc 116 mg/dl 06/28/24 06:32
Vitamin B12 289 pg/ml (239-931) 06/28/24 06:32
Patient Allergies
Penicillins Allergy (Verified 06/27/24 13:29)
Hives
Review of Systems
-
History Source: Patient
All other systems: Reviewed and negative
EENT: Other (diplopia); Negative Decreased Vision or Swallowing Difficulty
Neuro: Negative Headache
Physical Exam
-
General: No Apparent Distress and Appears Stated Age
Eyes: Round OU, [place] Conjunctivae and No Ptosis
HEENT: Anicteric and Moist Mucous Membranes
Neck: Full Range of Motion
Respiratory: No Dyspnea
Cardiac: No JVD
GI: Non-distended
Skin: Unremarkable
Extremities: No Clubbing, No Cyanosis and No Edema
Psych: Intact Judgement/Insight
Extended Neurological Exam
Mood & Affect: Mood Unremarkable and Affect Unremarkable
Attention Span & Concentration: Awake, Alert and Interactive
Memory: Unremarkable
Tremor: Hand Tremor Absent and Head Tremor Absent
Speech: Quality Unremarkable and Quantity Unremarkable
Cranial Nerve II: Left Eye: Pupillary Size Unremarkable and Visual Mahan Grossly Intact
Cranial Nerve II: Right Eye: Pupillary Size Unremarkable and Visual Mahan Grossly Intact
Cranial Nerves III, IV, : Extraocular Movement: Reduced (Left eye upgaze by approximately 10%), Otherwise Unremarkable and Other (Reproducible diplopia with upgaze and worsened with prolonged upgaze); Negative Ptosis on Left or Ptosis on Right
Cranial Nerve VII: Facial Symmetry: Normal Facial Symmetry and Other (Head tilt to the right mildly)
Cranial Nerve VIII: Hearing: Unremarkable Hearing to Normal Conversational Volume
Cranial Nerve XI: Shoulder Shrug: Unremarkable
Muscle Strength, Overall: Spontaneously Moves (All extremities)
Muscle Bulk & Tone: Bulk Unremarkable and Tone Unremarkable
Touch Sensation: Unremarkable
Coordination: Reaches for Objects without Difficulty
Past History
Past History
ED Past Medical History: Other (Esophageal stenosis with dilatation procedures beginning in 1992, DVT 2012, varicose veins)
Social History
Tobacco: Non-smoker
Personal:
Family History
Family History: Other (Reviewed and noncontributory)
Medications
-
Medications:
Generic Name Dose Route Start Last Admin
Trade Name Freq PRN Reason Stop Dose Admin
Acetaminophen 650 mg 06/28/24 00:22
Acetaminophen 650 Mg Rectal Suppository RECTAL 07/26/24 00:21
Q4HPRN PRN
HASKINS, mild pain, or temp >100.4F
Acetaminophen 650 mg 06/28/24 00:22
Acetaminophen 325 Mg Tablet PO 07/26/24 00:21
Q4HPRN PRN
HASKINS, mild pain, or temp >100.4F
Apixaban 2.5 mg 06/29/24 11:45 06/30/24 08:21
Apixaban (Eliquis) 2.5 Mg Tablet PO 07/27/24 11:44 2.5 mg
BID MILLER Administration
Doxycycline Hyclate 100 mg 06/28/24 08:00 06/28/24 08:46
Doxycycline 100 Mg Capsule PO Not Given
BID MILLER
Famotidine 40 mg 06/29/24 22:00 06/29/24 22:05
Famotidine 40 Mg Tablet PO 07/04/24 21:59 40 mg
HS MILLER Administration
Methylprednisolone Sodium 258 mls @ 258 mls/hr 06/29/24 11:00 06/29/24 12:43
Succinate 1,000 mg/ Sodium IV 07/03/24 11:59 258 mls
Chloride Q24H MILLER Administration
Immune Globulin 30 grams in 300 mls @ 0 mls/hr 06/29/24 12:00 06/29/24 14:04
Gammagard IV 07/03/24 12:01 300 mls
DAILY@1200 MILLER Administration
Protocol
Per Protocol
Ofloxacin 2 drop 06/28/24 08:00 06/30/24 08:26
Ofloxacin 0.3% (Ophthalmic Solution) 5 Ml Bottle RIGHT EYE 07/26/24 07:59 2 drop
QID MILLER Administration
Pyridostigmine [place] 90 mg 06/29/24 13:00 06/30/24 08:21
Pyridostigmine 60 Mg Tablet PO 07/26/24 12:59 90 mg
QID MILLER Administration
Sodium Chloride 0 flush 06/28/24 01:00
Sodium Chloride 0.9% (Flush) Syringe IV 07/26/24 00:59
PER PROTOCOL MILLER
--- NOTE | 2024-06-30 09:36 | NS.EMG ---
Electromyogram (EMG) Study
EMG/NCS Summary
Left facial motor nerve and left ulnar motor nerve repetitive stimulation technique was normal.
Full dictated report and tabular data to follow.
--- NOTE | 2024-06-30 10:07 | W.PN.UPDATE ---
Update Note
Progress Note Update
Appointment for consultation with Dr. Sanchez has been made for 07/14/24 at 9 am.
[2024-06-30] MEDS: SOLU-MEDROL 258 MG IV (10:13)
--- NOTE | 2024-06-30 11:58 | CON.ONC ---
Impression
Impression
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
no constitutional symptoms
Plan
Plan
possible MG management per neurology
CT surgery evaluation
OP follow up with primary heme/onc, Dr. Cota
hematology will sign off, please reach out with any further questions or concerns.
Patient History
History of Present Illness
69yo M presented with acute onset diplopia and findings of left eye ptosis. 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 His CBC and CMP are with out significant findings.
CT surgery evaluation is pending. He tells me that he sees Dr. Cota (heme//onc) for prior VTE with negative thrombophilia evaluation. He takes daily DOAC. Clinically, he denies fever, chills, cough, sob, gusman, chest pain, palpitations, n/v/d/c,
abdominal pain or unintentional weight loss. He has been admitted and started on methylprednisolone, IVIG, and pyridostigmine by neurology due to concern for myasthenia gravis.
Pt at bedside during visit.
Past-Medical/Surgical History
PMH VTE, Esophageal stenosis
PSH Esophageal dilatation procedures
Social never smoker, 3 beers/month, denies recreational drugs. 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
Family Daughter provoked VTE, mother lung cancer (smoker), brother prostate ca
Patient Medication
�Medication �Instructions �Recorded �Confirmed �Last Taken �Type
apixaban 2.5 mg tablet (Eliquis) 2.5 mg PO BID Heart 06/27/24 06/27/24 06/27/24 History
Disease/Condition
doxycycline hyclate 100 mg capsule 100 mg PO BID Infection 06/27/24 06/27/24 06/27/24 History
lysine 1,000 mg tablet 1,000 mg PO DAILY Supplement 06/27/24 06/27/24 06/27/24 History
ofloxacin 0.3 % eye drops 2 drp RIGHT EYE QID Eye Condition 06/27/24 06/27/24 06/27/24 History
Active Medications
Generic Name Dose Route Start Last Admin
Trade Name Freq PRN Reason Stop Dose Admin
Acetaminophen 650 mg 06/28/24 00:22
Acetaminophen 650 Mg Rectal Suppository RECTAL 07/26/24 00:21
Q4HPRN PRN
HASKINS, mild pain, or temp >100.4F
Acetaminophen 650 mg 06/28/24 00:22
Acetaminophen 325 Mg Tablet PO 07/26/24 00:21
Q4HPRN PRN
HASKINS, mild pain, or temp >100.4F
Apixaban 2.5 mg 06/29/24 11:45 06/30/24 08:21
Apixaban (Eliquis) 2.5 Mg Tablet PO 07/27/24 11:44 2.5 mg
BID MILLER Administration
Doxycycline Hyclate 100 mg 06/28/24 08:00 06/28/24 08:46
Doxycycline 100 Mg Capsule PO Not Given
BID MILLER
Famotidine 40 mg 06/29/24 22:00 06/29/24 22:05
Famotidine 40 Mg Tablet PO 07/04/24 21:59 40 mg
HS MILLER Administration
Immune Globulin 30 grams in 300 mls @ 0 mls/hr 06/29/24 12:00 06/29/24 14:04
Gammagard IV 07/03/24 12:01 300 mls
DAILY@1200 MILLER Administration
Protocol
Per Protocol
Methylprednisolone Sodium 258 mls @ 258 mls/hr 06/30/24 10:00 06/30/24 10:13
Succinate 1,000 mg/ Sodium IV 07/03/24 10:59 258 mls
Chloride Q24H MILLER Administration
Ofloxacin 2 drop 06/28/24 08:00 06/30/24 08:26
Ofloxacin 0.3% (Ophthalmic Solution) 5 Ml Bottle RIGHT EYE 07/26/24 07:59 2 drop
QID MILLER Administration
Pyridostigmine [place] 90 mg 06/29/24 13:00 06/30/24 08:21
Pyridostigmine 60 Mg Tablet PO 07/26/24 12:59 90 mg
QID MILLER Administration
Sodium Chloride 0 flush 06/28/24 01:00
Sodium Chloride 0.9% (Flush) Syringe IV 07/26/24 00:59
PER PROTOCOL MILLER
Review of Systems
-
ROS notable for subjective, otherwise negative.
Physical Exam
-
General: Well Developed, Well Nourished, No Apparent Distress and Conversant
HEENT: Moist Mucous Membranes; Negative Jaundice
Cardiology: S1 and S2
Pulmonary: Clear
GI: Soft
Extremities: Pulses Present; Negative Edema
Skin: Warm
Hematologic / Lymphatic: No Lymphadenopathy
Psych: Calm
Labs
Lab Results
WBC 5.9 10^3/uL (4.8-10.8) 06/27/24 18:24
RBC 4.80 10^6/uL (4.70-6.10) 06/27/24 18:24
Hgb 14.7 g/dL (13.0-18.0) 06/27/24 18:24
Hct 44.5 % (39.0-52.0) 06/27/24 18:24
MCV 92.7 fL (80.0-94.0) 06/27/24 18:24
MCH 30.6 pg (27.0-31.0) 06/27/24 18:24
MCHC 33.0 g/dL (33.0-37.0) 06/27/24 18:24
RDW 12.9 % (11.5-14.5) 06/27/24 18:24
Plt Count 232 10^3/uL (130-400) 06/27/24 18:24
MPV 9.3 fL (7.4-10.4) 06/27/24 18:24
Abs Immat Gran (auto) 0.0 10^3/uL (0-0.05) 06/27/24 18:24
Absolute Neuts (auto) 3.0 10^3/uL (1.4-6.5) 06/27/24 18:24
Absolute Lymphs (auto) 2.0 10^3/uL (1.2-3.4) 06/27/24 18:24
Absolute Monos (auto) 0.6 10^3/uL (0.1-0.6) 06/27/24 18:24
Absolute Eos (auto) 0.3 10^3/uL (0-0.7) 06/27/24 18:24
Absolute Basos (auto) 0.0 10^3/uL (0-0.2) 06/27/24 18:24
Immature Gran % 0.3 % (0-0.5) 06/27/24 18:24
Neutrophils % 50.6 % (42.2-75.2) 06/27/24 18:24
Lymphocytes % 34.0 % (20.5-51.1) 06/27/24 18:24
Monocytes % 9.6 % (1.7-9.3) H 06/27/24 18:24
Eosinophils % 4.8 % (0-6) 06/27/24 18:24
Basophils % 0.7 % (0-2) 06/27/24 18:24
Creatinine 0.8 mg/dL (0.7-1.3) 06/28/24 06:32
Vital Signs
Vital Signs
Temp Pulse Resp BP Pulse Ox
97.7 F 67 18 143/82 97
06/30/24 11:00 06/30/24 11:00 06/30/24 11:00 06/30/24 11:00 06/30/24 11:00
[2024-06-30] MEDS: GAMMAGARD 300 IV (12:03)
--- NOTE | 2024-06-30 12:44 | W.PN.HOSP.TC ---
Today's Communication/Plan
-
Continue with steroids and IVIG
Assessment / Plan
Assessment / Plan
New onset Lt eye diplopia with ptosis
Concern for more for MG per neuro
- MRI Brain no stroke
- Hold off on ASA
- Neuro input noted
- Getting ACH ab testing and started on pyridostigmine
- Was started on IVIG
- Now started on IV steroids
- EMG Normal left facial motor and ulnar motor nerve repetitive stimulation technique and normal ulnar motor conduction.
Hordeolum (stye) of Rt Eye lower lid with yellow exudate
- warm wet clot compression 10 Mins - 4times daily
- AVOID attempt to squeeze the stye
- 0.3 % Ofloxacin oint
- Hold doxy due to concern of MG trigger possibility per neuro
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 With concern for MG, consulted Oncology. They recommend to follow witH CT surgery as planned and follow with onc post bx if pathology indicates. CT sx consulted as there is mild
extrinsic compression of the left brachiocephalic vein. CT will follow this as OP.
DVT Px: SCD
Code: Full
Obs TLM
Anticipated Discharge: 24 - 48 hours
Subjective/Interval History
-
Date of Service: June 30, 2024
Patient feeling improved with his vision. Less diplopia.
No headache. No swallowing difficulty.
No fever chills.
No shortness of breath or chest pain.
Objective Data
-
Vital Signs:
Vital Signs
Temp Pulse Resp BP Pulse Ox
97.7 F 67 18 143/82 97
06/30/24 11:00 06/30/24 11:00 06/30/24 11:00 06/30/24 11:00 06/30/24 11:00
I&O
06/29/24 06/30/24 07/01/24
06:59 06:59 06:59
Intake Total 680 / 680 1937
Balance 680 / 680 1937
Physical Exam
-
General: Comfortable
HEENT: Moist Mucous Membranes
Respiratory: Non Labored Respirations; Negative Accessory Resp Muscle Use
Cardiac: Regular Rhythm and S1/S2
GI: Soft, Nontender, Nondistended and Normal Bowel Sounds
Neuro: AO x 3, No Motor Deficits and Other (no nystagmus); Negative Tremors, Slurred Speech or Facial Droop
Psych: Calm
--- NOTE | 2024-06-30 13:55 | CM ---
Chart reviewed. Care ongoing
Continue with steroids and IVIG per chart
CM will cont following for d/c planning
Plan: Anticipate home w/ no needs
--- NOTE | 2024-06-30 14:40 | PTCARENOTE ---
Pt recieving IVIG. 2 hours from the start BP is 170/87, HR 70. Pt assymptomatic otherwise. made aware. Continuing to monitor.
[2024-06-30 16:27] LABS: Lyme Antibody Screen, EIA Negative (Negative)
[2024-06-30 18:08] LABS: Hepatitis C Antibody Negative (Negative)
[2024-06-30] MEDS: PEPCID 40 MG PO (22:24)
[2024-07-01] VITALS (9 sets, daily range): BP systolic 135–161; BP diastolic 72–85
[2024-07-01] MEDS: MESTINON 90 MG PO ×2 (08:32→13:52)
[2024-07-01] MEDS: ELIQUIS 2.5 MG PO ×2 (08:32→21:06)
[2024-07-01] MEDS: OCUFLOX 2 DROP RIGHT EYE ×4 (08:33→21:46)
--- NOTE | 2024-07-01 08:35 | W.PN.NEURO.1 ---
Today's Communication / Plan
-
Continue methylprednisolone 1 g IV and immunoglobulin 400 mg/kg initiated 06/29/2024, goal of 5 doses
Increase pyridostigmine from 90 mg to 120 mg 3 times a day
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
Neuro Assessment/Plan
Assessment
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
CT head was unremarkable
Patient with acute onset diplopia and findings of left eye ptosis with reduced upgaze in the left eye, and intact pupillary size
Most likely secondary to myasthenia gravis, potentially unmasked from acute exposure to doxycycline although that is not a typical agent producing myasthenic symptoms. Differential diagnosis would include Lambert-Eaton myasthenic syndrome (LEMS)
with the patient experiencing the substernal mass of unknown etiology
Icepack challenge demonstrated no improvement in double vision
CT of chest suggested substernal mass of unclear etiology, potentially thymoma or other etiology
EMG study reportedly with repetitive stimulation was normal
Plan
Continue methylprednisolone 1 g IV and immunoglobulin 400 mg/kg initiated 06/29/2024, goal of 5 doses
Increase pyridostigmine from 90 mg to 120 mg 3 times a day
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
Outpatient prednisone 60 mg then decrease by 10 mg weekly until off
Await acetylcholine receptor antibodies, add VGCC for ? LEMS
Started vitamin B12 replacement due to low level
Consider initiation of lipid-lowering agent based on the patient's LDL elevation despite the possibility of a myasthenic syndrome
Will follow
Subjective/Objective
Subjective Data
Date of Service: July 01, 2024
No change. Tolerating the medications.
Objective Data
Vital Signs
Temp Pulse Resp BP Pulse Ox
36.2 C 63 18 135/84 95
07/01/24 07:06 07/01/24 07:06 07/01/24 07:06 07/01/24 07:06 07/01/24 07:06
Lab Results
06/27/24 18:24
06/28/24 06:32
Sodium 137 mmol/L (135-145) 06/28/24 06:32
Potassium 4.5 mmol/L (3.5-5.1) 06/28/24 06:32
BUN 16 mg/dl (9-20) 06/28/24 06:32
Glucose 142 mg/dl (70-99) H 06/28/24 06:32
Calcium 9.2 mg/dl (8.4-10.2) 06/28/24 06:32
LDL Cholesterol, Calc 116 mg/dl 06/28/24 06:32
Vitamin B12 289 pg/ml (239-931) 06/28/24 06:32
Patient Allergies
Penicillins Allergy (Verified 06/27/24 13:29)
Hives
Review of Systems
-
History Source: Patient
All other systems: Reviewed and negative
EENT: Other (diplopia); Negative Decreased Vision or Swallowing Difficulty
Respiratory: Negative Trouble Breathing
Cardiac: Negative Chest Pain
Abdomen/GI: Negative Incontinence of Stool
Genitourinary: Negative Incontinence
Neuro: Negative Dizzy or Headache
Physical Exam
-
General: No Apparent Distress and Appears Stated Age
Eyes: Round OU, [place] Conjunctivae and No Ptosis
HEENT: Anicteric and Moist Mucous Membranes
Neck: Full Range of Motion
Respiratory: No Dyspnea
Cardiac: No JVD
GI: Non-distended
Skin: Unremarkable
Extremities: No Clubbing, No Cyanosis and No Edema
Psych: Intact Judgement/Insight
Extended Neurological Exam
Mood & Affect: Mood Unremarkable and Affect Unremarkable
Attention Span & Concentration: Awake, Alert and Interactive
Memory: Unremarkable
Tremor: Hand Tremor Absent and Head Tremor Absent
Speech: Quality Unremarkable and Quantity Unremarkable
Cranial Nerve II: Left Eye: Pupillary Size Unremarkable and Visual Mahan Grossly Intact
Cranial Nerve II: Right Eye: Pupillary Size Unremarkable and Visual Mahan Grossly Intact
Cranial Nerves III, IV, : Extraocular Movement: Reduced (Left eye upgaze by approximately 10%), Otherwise Unremarkable and Other (Reproducible diplopia with upgaze and worsened with prolonged upgaze); Negative Ptosis on Left or Ptosis on Right
Cranial Nerve VII: Facial Symmetry: Normal Facial Symmetry and Other (Head tilt to the right mildly)
Cranial Nerve VIII: Hearing: Unremarkable Hearing to Normal Conversational Volume
Cranial Nerve XI: Shoulder Shrug: Unremarkable
Muscle Strength, Overall: Spontaneously Moves (All extremities)
Muscle Bulk & Tone: Bulk Unremarkable and Tone Unremarkable
Touch Sensation: Unremarkable
Coordination: Reaches for Objects without Difficulty
Data Reviewed
-
Labs: Report Reviewed
Reviewed with: Patient and Family
Old Records: Summarized
Past History
Past History
ED Past Medical History: Other (Esophageal stenosis with dilatation procedures beginning in 1992, DVT 2012, varicose veins)
ED Past Surgical History: None
Social History
Tobacco: Non-smoker
Personal:
Family History
Family History: Other (Reviewed and noncontributory)
Medications
-
Medications:
Generic Name Dose Route Start Last Admin
Trade Name Freq PRN Reason Stop Dose Admin
Acetaminophen 650 mg 06/28/24 00:22
Acetaminophen 650 Mg Rectal Suppository RECTAL 07/26/24 00:21
Q4HPRN PRN
HASKINS, mild pain, or temp >100.4F
Acetaminophen 650 mg 06/28/24 00:22
Acetaminophen 325 Mg Tablet PO 07/26/24 00:21
Q4HPRN PRN
HASKINS, mild pain, or temp >100.4F
Apixaban 2.5 mg 06/29/24 11:45 06/30/24 20:57
Apixaban (Eliquis) 2.5 Mg Tablet PO 07/27/24 11:44 2.5 mg
BID MILLER Administration
Doxycycline Hyclate 100 mg 06/28/24 08:00 06/28/24 08:46
Doxycycline 100 Mg Capsule PO Not Given
BID MILLER
Famotidine 40 mg 06/29/24 22:00 06/30/24 22:24
Famotidine 40 Mg Tablet PO 07/04/24 21:59 40 mg
HS MILLER Administration
Immune Globulin 30 grams in 300 mls @ 0 mls/hr 06/29/24 12:00 06/30/24 12:03
Gammagard IV 07/03/24 12:01 300 mls
DAILY@1200 MILLER Administration
Protocol
Per Protocol
Methylprednisolone Sodium 258 mls @ 258 mls/hr 06/30/24 10:00 06/30/24 10:13
Succinate 1,000 mg/ Sodium IV 07/03/24 10:59 258 mls
Chloride Q24H MILLER Administration
Ofloxacin 2 drop 06/28/24 08:00 06/30/24 22:25
Ofloxacin 0.3% (Ophthalmic Solution) 5 Ml Bottle RIGHT EYE 07/26/24 07:59 2 drop
QID MILLER Administration
Pyridostigmine [place] 90 mg 06/29/24 13:00 06/30/24 22:25
Pyridostigmine 60 Mg Tablet PO 07/26/24 12:59 90 mg
QID MILLER Administration
Sodium Chloride 0 flush 06/28/24 01:00
Sodium Chloride 0.9% (Flush) Syringe IV 07/26/24 00:59
PER PROTOCOL MILLER
[2024-07-01] MEDS: SOLU-MEDROL 258 MG IV (10:04)
[2024-07-01 10:15] LABS: Glucose - Point of Care 132 mg/dl (70-99)
[2024-07-01] MEDS: GAMMAGARD 300 IV (11:39)
[2024-07-01 12:46] LABS: Glucose - Point of Care 223 mg/dl (70-99)
[2024-07-01] MEDS: NOVOLOG FLEXPEN-LOW RESISTANCE 2 UNITS SC (13:53)
--- NOTE | 2024-07-01 14:36 | W.PN.HOSP.TC ---
Today's Communication/Plan
-
Continue with IVIG and IV steroids
Continue sliding scale insulin
Assessment / Plan
Assessment / Plan
New onset Lt eye diplopia with ptosis
Concern for more for MG per neuro
- MRI Brain no stroke
- Hold off on ASA
- Neuro input noted
- Getting ACH ab testing and started on pyridostigmine
- Was started on IVIG - 5 day course
- Now started on IV steroids
- EMG Normal left facial motor and ulnar motor nerve repetitive stimulation technique and normal ulnar motor conduction.
Hordeolum (stye) of Rt Eye lower lid with yellow exudate
- warm wet clot compression 10 Mins - 4times daily
- AVOID attempt to squeeze the stye
- 0.3 % Ofloxacin oint
- Hold doxy due to concern of MG trigger possibility per neuro
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 With concern for MG, consulted Oncology. They recommend to follow witH CT surgery as planned and follow with onc post bx if pathology indicates. CT sx consulted as there is mild
extrinsic compression of the left brachiocephalic vein. CT will follow this as OP.
Prediabetic - no on tx at home. SSI while on steroids
DVT Px: SCD
Code: Full
Obs TLM
Anticipated Discharge: > 48 hours
Subjective/Interval History
-
Date of Service: July 01, 2024
Continued improvement with the left eye double vision.
No new symptoms.
Denies any headache.
Objective Data
-
Vital Signs:
Vital Signs
Temp Pulse Resp BP Pulse Ox
97.2 F 63 18 135/84 95
07/01/24 07:06 07/01/24 07:06 07/01/24 07:06 07/01/24 07:06 07/01/24 07:06
I&O
06/30/24 07/01/24 07/02/24
06:59 06:59 06:59
Intake Total 1937
Balance 1937
Review of Systems
-
Constitutional: Denies Fever or Chills
EENT: Denies Sore Throat
Respiratory: Denies Cough or Trouble Breathing
Cardiac: Denies Chest Pain
Abdomen/GI: Denies Abdominal Pain, Nausea or Vomiting
Neuro: Denies Dizzy
Physical Exam
-
General: No Apparent Distress
Respiratory: Non Labored Respirations; Negative Accessory Resp Muscle Use
Cardiac: Regular Rhythm and S1/S2; Negative Tachycardic
Neuro: AO x 3, No Motor Deficits and Other (no nystagmus)
Psych: Calm; Negative Confused
Data Reviewed
-
Labs: Labs Reviewed by me
[2024-07-01 17:05] LABS: Glucose - Point of Care 347 mg/dl (70-99)
[2024-07-01] MEDS: NOVOLOG FLEXPEN-LOW RESISTANCE 4 UNITS SC (18:14)
[2024-07-01] MEDS: MESTINON 120 MG PO ×2 (18:15→21:06)
[2024-07-01] MEDS: PEPCID 40 MG PO (21:07)
[2024-07-01 21:31] LABS: Glucose - Point of Care 289 mg/dl (70-99)
[2024-07-01 21:43] LABS: ANA, IgG Reflex to HEp-2 None Detected (None Detected)
[2024-07-02] VITALS (8 sets, daily range): BP systolic 144–159; BP diastolic 72–84
[2024-07-02 08:21] LABS: Glucose - Point of Care 157 mg/dl (70-99)
--- NOTE | 2024-07-02 09:02 | W.PN.NEURO.1 ---
Today's Communication / Plan
-
Continue methylprednisolone 1 g IV and immunoglobulin 400 mg/kg initiated 06/29/2024, goal of 5 doses
Increased pyridostigmine from 90 mg to 120 mg 4 times a day
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
Outpatient prednisone 60 mg then decrease by 10 mg weekly until off
Await acetylcholine receptor antibodies, add VGCC for ? LEMS
Neuro Assessment/Plan
Assessment
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
CT head was unremarkable
Patient with acute onset diplopia and findings of left eye ptosis with reduced upgaze in the left eye, and intact pupillary size
Most likely secondary to myasthenia gravis, potentially unmasked from acute exposure to doxycycline although that is not a typical agent producing myasthenic symptoms. Differential diagnosis would include Lambert-Eaton myasthenic syndrome (LEMS)
with the patient experiencing the substernal mass of unknown etiology
Icepack challenge demonstrated no improvement in double vision
CT of chest suggested substernal mass of unclear etiology, potentially thymoma or other etiology
EMG study reportedly with repetitive stimulation was normal
Plan
Continue methylprednisolone 1 g IV and immunoglobulin 400 mg/kg initiated 06/29/2024, goal of 5 doses
Increased pyridostigmine from 90 mg to 120 mg 4 times a day
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
Outpatient prednisone 60 mg then decrease by 10 mg weekly until off
Await acetylcholine receptor antibodies, add VGCC for ? LEMS
Started vitamin B12 replacement due to low level
Consider initiation of lipid-lowering agent based on the patient's LDL elevation despite the possibility of a myasthenic syndrome, Atorvastatin
Will follow
Subjective/Objective
Subjective Data
Date of Service: July 02, 2024
Slightly improved this AM, tolerating med.
Objective Data
Vital Signs
Temp Pulse Resp BP Pulse Ox
36.3 C 53 16 145/78 95
07/01/24 23:05 07/01/24 23:05 07/01/24 23:05 07/01/24 23:05 07/01/24 23:05
Lab Results
06/27/24 18:24
06/28/24 06:32
Sodium 137 mmol/L (135-145) 06/28/24 06:32
Potassium 4.5 mmol/L (3.5-5.1) 06/28/24 06:32
BUN 16 mg/dl (9-20) 06/28/24 06:32
Glucose 142 mg/dl (70-99) H 06/28/24 06:32
Calcium 9.2 mg/dl (8.4-10.2) 06/28/24 06:32
LDL Cholesterol, Calc 116 mg/dl 06/28/24 06:32
Vitamin B12 289 pg/ml (239-931) 06/28/24 06:32
Patient Allergies
Penicillins Allergy (Verified 06/27/24 13:29)
Hives
Physical Exam
-
General: No Apparent Distress and Appears Stated Age
Eyes: Round OU, [place] Conjunctivae and No Ptosis
HEENT: Anicteric and Moist Mucous Membranes
Neck: Full Range of Motion
Respiratory: No Dyspnea
Cardiac: No JVD
GI: Non-distended
Skin: Unremarkable
Extremities: No Clubbing, No Cyanosis and No Edema
Psych: Intact Judgement/Insight
Extended Neurological Exam
Mood & Affect: Mood Unremarkable and Affect Unremarkable
Attention Span & Concentration: Awake, Alert and Interactive
Memory: Unremarkable
Tremor: Hand Tremor Absent and Head Tremor Absent
Speech: Quality Unremarkable and Quantity Unremarkable
Cranial Nerve II: Left Eye: Pupillary Size Unremarkable and Visual Mahan Grossly Intact
Cranial Nerve II: Right Eye: Pupillary Size Unremarkable and Visual Mahan Grossly Intact
Cranial Nerves III, IV, : Extraocular Movement: Reduced (Left eye upgaze by approximately 10%), Otherwise Unremarkable and Other (Reproducible diplopia with upgaze); Negative Ptosis on Left or Ptosis on Right
Cranial Nerve VII: Facial Symmetry: Normal Facial Symmetry and Other (Head tilt to the right mildly)
Cranial Nerve VIII: Hearing: Unremarkable Hearing to Normal Conversational Volume
Cranial Nerve XI: Shoulder Shrug: Unremarkable
Muscle Strength, Overall: Spontaneously Moves (All extremities)
Muscle Bulk & Tone: Bulk Unremarkable and Tone Unremarkable
Touch Sensation: Unremarkable
Coordination: Reaches for Objects without Difficulty
Data Reviewed
-
Labs: Report Reviewed
Old Records: Summarized
Past History
Past History
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
ED Past Surgical History: None
Social History
Tobacco: Non-smoker
Personal:
Family History
Family History: Other (Reviewed and noncontributory)
Medications
-
Medications:
Generic Name Dose Route Start Last Admin
Trade Name Freq PRN Reason Stop Dose Admin
Acetaminophen 650 mg 06/28/24 00:22
Acetaminophen 650 Mg Rectal Suppository RECTAL 07/26/24 00:21
Q4HPRN PRN
HASKINS, mild pain, or temp >100.4F
Acetaminophen 650 mg 06/28/24 00:22
Acetaminophen 325 Mg Tablet PO 07/26/24 00:21
Q4HPRN PRN
HASKINS, mild pain, or temp >100.4F
Apixaban 2.5 mg 06/29/24 11:45 07/01/24 21:06
Apixaban (Eliquis) 2.5 Mg Tablet PO 07/27/24 11:44 2.5 mg
BID MILLER Administration
Dextrose 12.5 grams 07/01/24 10:07
Dextrose 50% (0.5 Grams/Ml) 50 Ml Syringe IV 07/29/24 10:06
[id number] PRN
hypoglycemia
Protocol
Famotidine 40 mg 06/29/24 22:00 07/01/24 21:07
Famotidine 40 Mg Tablet PO 07/04/24 21:59 40 mg
HS MILLER Administration
Glucagon 1 mg 07/01/24 10:07
Glucagon 1 Mg Vial IM 07/29/24 10:06
PRN PRN
hypoglycemia
Protocol
Immune Globulin 30 grams in 300 mls @ 0 mls/hr 06/29/24 12:00 07/01/24 11:39
Gammagard IV 07/03/24 12:01 300 mls
DAILY@1200 MILLER Administration
Protocol
Per Protocol
Methylprednisolone Sodium 258 mls @ 258 mls/hr 06/30/24 10:00 07/01/24 10:04
Succinate 1,000 mg/ Sodium IV 07/03/24 10:59 258 mls
Chloride Q24H MILLER Administration
Insulin Aspart 0 units 07/01/24 11:30 07/01/24 18:14
Insulin Aspart Low Resistance 300 Units/3 Ml Pen.Injctr SC 07/29/24 11:29 4 units
AC MILLER Administration
Protocol
Ofloxacin 2 drop 06/28/24 08:00 07/01/24 21:46
Ofloxacin 0.3% (Ophthalmic Solution) 5 Ml Bottle RIGHT EYE 07/26/24 07:59 2 drop
QID MILLER Administration
Pyridostigmine [place] 120 mg 07/01/24 18:00 07/01/24 21:06
Pyridostigmine 60 Mg Tablet PO 07/26/24 17:59 120 mg
QID MILLER Administration
Sodium Chloride 0 flush 06/28/24 01:00
Sodium Chloride 0.9% (Flush) Syringe IV 07/26/24 00:59
PER PROTOCOL MILLER
[2024-07-02] MEDS: OCUFLOX 2 DROP RIGHT EYE ×4 (09:04→21:31)
[2024-07-02] MEDS: NOVOLOG FLEXPEN-LOW RESISTANCE 1 UNITS SC ×2 (09:04→12:41)
[2024-07-02] MEDS: ELIQUIS 2.5 MG PO ×2 (09:04→20:28)
[2024-07-02] MEDS: MESTINON 120 MG PO ×4 (09:04→21:31)
--- NOTE | 2024-07-02 10:07 | W.PN.UPDATE ---
Update Note
Progress Note Update
Follow up appointment was given to the patient. He expressed understanding. CT surgery will sign off at this time. Thank you
[2024-07-02] MEDS: SOLU-MEDROL 258 MG IV (10:28)
[2024-07-02 12:12] LABS: Glucose - Point of Care 155 mg/dl (70-99)
[2024-07-02] MEDS: GAMMAGARD 300 IV (12:34)
--- NOTE | 2024-07-02 13:52 | W.PN.HOSP.TC ---
Today's Communication/Plan
-
Start on metformin
Continue with IV Ig and steroids per neurology
Assessment / Plan
Assessment / Plan
New onset Lt eye diplopia with ptosis
Concern for more for MG per neuro
- MRI Brain no stroke
- Hold off on ASA
- Neuro input noted
- Getting ACH ab testing and started on pyridostigmine
- Was started on IVIG - 5 day course
- Now started on IV steroids
- EMG Normal left facial motor and ulnar motor nerve repetitive stimulation technique and normal ulnar motor conduction.
Hordeolum (stye) of Rt Eye lower lid with yellow exudate
- warm wet clot compression 10 Mins - 4times daily
- AVOID attempt to squeeze the stye
- 0.3 % Ofloxacin oint
- Hold doxy due to concern of MG trigger possibility per neuro
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 With concern for MG, consulted Oncology. They recommend to follow witH CT surgery as planned and follow with onc post bx if pathology indicates. CT sx consulted as there is mild
extrinsic compression of the left brachiocephalic vein. CT will follow this as OP.
Prediabetic - no on tx at home. SSI while on steroids. With plan to go home on steroid taper , will start on Metformin and uptitrate as needed at home. Pt has machine at home and needs strips and lancets. Pt agreeable for Metformin.
DVT Px: SCD
Code: Full
Obs TLM
Anticipated Discharge: Within 24 hours
Subjective/Interval History
-
Date of Service: July 02, 2024
Feeling improved with his vision. No new symptoms.
Objective Data
-
Vital Signs:
Vital Signs
Temp Pulse Resp BP Pulse Ox
98 F 49 20 159/83 95
07/02/24 07:00 07/02/24 07:00 07/02/24 07:00 07/02/24 07:00 07/02/24 07:00
I&O
07/01/24 07/02/24 07/03/24
06:59 06:59 06:59
Intake Total 1859 1260 / 1260 480 / 480
Balance 1859 1260 / 1260 480 / 480
Review of Systems
-
Constitutional: Denies Fever or Chills
Respiratory: Denies Trouble Breathing
Cardiac: Denies Chest Pain
Abdomen/GI: Denies Abdominal Pain, Nausea or Vomiting
Neuro: Denies Dizzy or Headache
Physical Exam
-
General: Comfortable
Respiratory: Non Labored Respirations; Negative Accessory Resp Muscle Use
Cardiac: Regular Rhythm and S1/S2; Negative Tachycardic
GI: Soft
Neuro: AO x 3 and No Motor Deficits
Psych: Calm; Negative Confused
[2024-07-02 17:42] LABS: Glucose - Point of Care 331 mg/dl (70-99)
[2024-07-02] MEDS: NOVOLOG FLEXPEN-LOW RESISTANCE 4 UNITS SC (17:48)
[2024-07-02] MEDS: GLUCOPHAGE 500 MG PO (17:48)
[2024-07-02] MEDS: PEPCID 40 MG PO (21:31)
[2024-07-02 21:36] LABS: Glucose - Point of Care 305 mg/dl (70-99)
[2024-07-03] VITALS (7 sets, daily range): BP systolic 143–163; BP diastolic 71–87
[2024-07-03 07:14] LABS: Glucose - Point of Care 238 mg/dl (70-99)
--- NOTE | 2024-07-03 07:51 | W.PN.NEURO.1 ---
Today's Communication / Plan
-
Final methylprednisolone 1 g IV and immunoglobulin 400 mg/kg initiated 06/29/2024, total of 5 doses
Continue pyridostigmine 120 mg 4 times a day
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
Outpatient evaluation with neuromuscular subspecialist at [facility]
Outpatient prednisone 60 mg then decrease by 10 mg weekly until off
Outpatient CT abdomen and pelvis for potential other etiologies of the patient's symptomatology
Await [facility] for ? LEMS
Started vitamin B12 replacement due to low level
Outpatient initiation of lipid-lowering agent based on the patient's LDL elevation despite the possibility of a myasthenic syndrome, Atorvastatin
Neuro Assessment/Plan
Assessment
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
CT head was unremarkable
Patient with acute onset diplopia and findings of left eye ptosis with reduced upgaze in the left eye, and intact pupillary size
Most likely secondary to myasthenia gravis, potentially unmasked from acute exposure to doxycycline although that is not a typical agent producing myasthenic symptoms. Differential diagnosis would include Lambert-Eaton myasthenic syndrome (LEMS)
with the patient experiencing the substernal mass of unknown etiology
Icepack challenge demonstrated no improvement in double vision
CT of chest suggested substernal mass of unclear etiology, potentially thymoma or other etiology
EMG study reportedly with repetitive stimulation was normal
Acetylcholine receptor antibodies normal
Plan
Final methylprednisolone 1 g IV and immunoglobulin 400 mg/kg initiated 06/29/2024, total of 5 doses
Continue pyridostigmine 120 mg 4 times a day
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
Outpatient evaluation with neuromuscular subspecialist at [facility]
Outpatient prednisone 60 mg then decrease by 10 mg weekly until off
Outpatient CT abdomen and pelvis for potential other etiologies of the patient's symptomatology
Await [facility] for ? LEMS
Started vitamin B12 replacement due to low level
Outpatient initiation of lipid-lowering agent based on the patient's LDL elevation despite the possibility of a myasthenic syndrome, Atorvastatin
Will follow
Subjective/Objective
Subjective Data
Date of Service: July 03, 2024
No clear change, overall improved
Objective Data
Vital Signs
Temp Pulse Resp BP Pulse Ox
36.4 C 56 18 147/80 97
07/02/24 22:59 07/02/24 22:59 07/02/24 22:59 07/02/24 22:59 07/02/24 22:59
Lab Results
06/27/24 18:24
06/28/24 06:32
Sodium 137 mmol/L (135-145) 06/28/24 06:32
Potassium 4.5 mmol/L (3.5-5.1) 06/28/24 06:32
BUN 16 mg/dl (9-20) 06/28/24 06:32
Glucose 142 mg/dl (70-99) H 06/28/24 06:32
Calcium 9.2 mg/dl (8.4-10.2) 06/28/24 06:32
LDL Cholesterol, Calc 116 mg/dl 06/28/24 06:32
Vitamin B12 289 pg/ml (239-931) 06/28/24 06:32
Patient Allergies
Penicillins Allergy (Verified 06/27/24 13:29)
Hives
Review of Systems
-
History Source: Patient
All other systems: Reviewed and negative
EENT: Other (diplopia); Negative Swallowing Difficulty
Respiratory: Negative Trouble Breathing
Cardiac: Negative Chest Pain
Abdomen/GI: Negative Diarrhea
Physical Exam
-
General: No Apparent Distress and Appears Stated Age
Eyes: Round OU, [place] Conjunctivae and No Ptosis
HEENT: Anicteric and Moist Mucous Membranes
Neck: Full Range of Motion
Respiratory: No Dyspnea
Cardiac: No JVD
GI: Non-distended
Skin: Unremarkable
Extremities: No Clubbing, No Cyanosis and No Edema
Psych: Intact Judgement/Insight
Extended Neurological Exam
Mood & Affect: Mood Unremarkable and Affect Unremarkable
Attention Span & Concentration: Awake, Alert and Interactive
Memory: Unremarkable
Tremor: Hand Tremor Absent and Head Tremor Absent
Involuntary Movement: None
Speech: Quality Unremarkable and Quantity Unremarkable
Cranial Nerve II: Left Eye: Pupillary Size Unremarkable and Visual Mahan Grossly Intact
Cranial Nerve II: Right Eye: Pupillary Size Unremarkable and Visual Mahan Grossly Intact
Cranial Nerves III, IV, : Extraocular Movement: Reduced (Left eye upgaze by approximately 10%), Otherwise Unremarkable and Other (Reproducible diplopia with upgaze immediately); Negative Ptosis on Left or Ptosis on Right
Cranial Nerve VII: Facial Symmetry: Normal Facial Symmetry and Other (Head tilt to the right minimally)
Cranial Nerve VIII: Hearing: Unremarkable Hearing to Normal Conversational Volume
Cranial Nerve XI: Shoulder Shrug: Unremarkable
Muscle Strength, Overall: Spontaneously Moves (All extremities)
Muscle Bulk & Tone: Bulk Unremarkable and Tone Unremarkable
Touch Sensation: Unremarkable
Coordination: Reaches for Objects without Difficulty
Data Reviewed
-
Labs: Report Reviewed
Reviewed with: Physician, Patient and Family
Old Records: Summarized
Past History
Past History
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
ED Past Surgical History: Other (Esophageal dilatation beginning 1992)
Social History
Tobacco: Non-smoker
Personal:
Living: with family
Family History
Family History: Other (Reviewed and noncontributory)
Medications
-
Medications:
Generic Name Dose Route Start Last Admin
Trade Name Freq PRN Reason Stop Dose Admin
Acetaminophen 650 mg 06/28/24 00:22
Acetaminophen 650 Mg Rectal Suppository RECTAL 07/26/24 00:21
Q4HPRN PRN
HASKINS, mild pain, or temp >100.4F
Acetaminophen 650 mg 06/28/24 00:22
Acetaminophen 325 Mg Tablet PO 07/26/24 00:21
Q4HPRN PRN
HASKINS, mild pain, or temp >100.4F
Apixaban 2.5 mg 06/29/24 11:45 07/02/24 20:28
Apixaban (Eliquis) 2.5 Mg Tablet PO 07/27/24 11:44 2.5 mg
BID MILLER Administration
Dextrose 12.5 grams 07/01/24 10:07
Dextrose 50% (0.5 Grams/Ml) 50 Ml Syringe IV 07/29/24 10:06
[id number] PRN
hypoglycemia
Protocol
Famotidine 40 mg 06/29/24 22:00 07/02/24 21:31
Famotidine 40 Mg Tablet PO 07/04/24 21:59 40 mg
HS MILLER Administration
Glucagon 1 mg 07/01/24 10:07
Glucagon 1 Mg Vial IM 07/29/24 10:06
PRN PRN
hypoglycemia
Protocol
Immune Globulin 30 grams in 300 mls @ 0 mls/hr 06/29/24 12:00 07/02/24 12:34
Gammagard IV 07/03/24 12:01 300 mls
DAILY@1200 MILLER Administration
Protocol
Per Protocol
Methylprednisolone Sodium 258 mls @ 258 mls/hr 06/30/24 10:00 07/02/24 10:28
Succinate 1,000 mg/ Sodium IV 07/03/24 10:59 258 mls
Chloride Q24H MILLER Administration
Insulin Aspart 0 units 07/01/24 11:30 07/02/24 17:48
Insulin Aspart Low Resistance 300 Units/3 Ml Pen.Injctr SC 07/29/24 11:29 4 units
AC MILLER Administration
Protocol
Metformin HCl 500 mg 07/02/24 17:00 07/02/24 17:48
Metformin 500 Mg Regular Release Tablet PO 07/30/24 16:59 500 mg
BID@0800,1700 MILLER Administration
Ofloxacin 2 drop 06/28/24 08:00 07/02/24 21:31
Ofloxacin 0.3% (Ophthalmic Solution) 5 Ml Bottle RIGHT EYE 07/26/24 07:59 2 drop
QID MILLER Administration
Pyridostigmine Clifford 120 mg 07/01/24 18:00 07/02/24 21:31
Pyridostigmine 60 Mg Tablet PO 07/26/24 17:59 120 mg
QID MILLER Administration
Sodium Chloride 0 flush 06/28/24 01:00
Sodium Chloride 0.9% (Flush) Syringe IV 07/26/24 00:59
PER PROTOCOL MILLER
[2024-07-03] MEDS: NOVOLOG FLEXPEN-LOW RESISTANCE 2 UNITS SC (08:56)
[2024-07-03] MEDS: ELIQUIS 2.5 MG PO (08:57)
[2024-07-03] MEDS: MESTINON 120 MG PO ×2 (08:57→13:10)
[2024-07-03] MEDS: OCUFLOX 2 DROP RIGHT EYE ×2 (08:57→13:06)
[2024-07-03] MEDS: GLUCOPHAGE 500 MG PO (08:57)
[2024-07-03] MEDS: SOLU-MEDROL 258 MG IV (08:59)
--- NOTE | 2024-07-03 10:54 | W.PN.HOSP.TC ---
Today's Communication/Plan
-
DC
Assessment / Plan
Assessment / Plan
New onset Lt eye diplopia with ptosis
Concern for more for MG per neuro
- MRI Brain no stroke
- Hold off on ASA
- Neuro input noted
- Getting [facility] ab testing and started on pyridostigmine
- Was started on IVIG - 5 day course
- Now started on IV steroids -5 day course .Will be done today.Goes home on taper per neuro.
- EMG Normal left facial motor and ulnar motor nerve repetitive stimulation technique and normal ulnar motor conduction.
-Follow-up with neurology as outpatient. Neurology to obtain outpatient CT of the abdomen pelvis for other etiologies of patient's symptomatology.
Hordeolum (stye) of Rt Eye lower lid with yellow exudate
- warm wet clot compression 10 Mins - 4times daily
- AVOID attempt to squeeze the stye
- 0.3 % Ofloxacin oint
- Hold doxy due to concern of MG trigger possibility per neuro
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 With concern for MG, consulted Oncology. They recommend to follow witH CT surgery as planned and follow with onc post bx if pathology indicates. CT sx consulted as there is mild
extrinsic compression of the left brachiocephalic vein. CT will follow this as OP.
Hyperglycemia secondary to steroids
Prediabetic - no on tx at home.
With plan to go home on steroid taper but too high dose will switch him to insulin at home for glycemic management.
Discussed with the who has used insulin in the past while she is on steroids and she still has the Contour next glucometer. She is happy to do the Lantus and the mealtime insulin. She understands how to do a sliding scale. She wants insulin
supplies, glucose strips, pen needles, and lancets. She is comfortable doing it and does not think needs diabetic nurse educator instructions. is as well comfortable doing insulin at home. Insulin is easier to manage as his steroids are
going to be on a taper. She was advised to hold Lantus if the blood sugar starts to come less than 1 10 in the morning. DC metformin.
Will DC home after his IV steroids and IVIG today.
Total time of discharge 35 minutes
Anticipated Discharge: Today
Subjective/Interval History
-
Date of Service: July 03, 2024
Continued improvement with his vision.
Voicing no new specific complaints.
No headache.
Objective Data
-
Vital Signs:
Vital Signs
Temp Pulse Resp BP Pulse Ox
98.0 F 56 20 163/87 95
07/03/24 07:25 07/03/24 07:25 07/03/24 07:25 07/03/24 07:25 07/03/24 07:25
I&O
07/02/24 07/03/24 07/04/24
06:59 06:59 06:59
Intake Total 1260 / 1260 720 / 720
Balance 1260 / 1260 720 / 720
Review of Systems
-
Constitutional: Denies Fever or Chills
EENT: Denies Sore Throat
Respiratory: Denies Trouble Breathing
Cardiac: Denies Chest Pain
Abdomen/GI: Denies Abdominal Pain, Nausea, Vomiting or Diarrhea
Neuro: Denies Dizzy
Physical Exam
-
General: Comfortable
Respiratory: Non Labored Respirations; Negative Accessory Resp Muscle Use
Cardiac: Regular Rhythm and S1/S2; Negative Tachycardic
GI: Soft
Neuro: AO x 3 and No Motor Deficits
Psych: Calm; Negative Confused or Agitated
--- NOTE | 2024-07-03 11:36 | CM ---
Chart reviewed for d/c planning. No skilled OT needs per OT eval
Pt is medically clear for d/c today
Seen pt bedside w/ spouse. Both pt and spouse agreeable to d/c today
IMM reviewed, pt given copy, copy in chart
Spouse will transport home
Plan: Home; no needs
[2024-07-03] MEDS: GAMMAGARD 300 IV (11:45)
[2024-07-03] MEDS: LANTUS 0.1 UNITS SC (11:56)
[2024-07-03 12:05] LABS: Glucose - Point of Care 162 mg/dl (70-99)
[2024-07-03] MEDS: NOVOLOG FLEXPEN-LOW RESISTANCE 1 UNITS SC (13:06)
== END 2024-07-03 17:16 | disposition home or self-care (01) | DRG 57 ==
LOC: 4 WEST ACU 12:49
PROVIDERS: Physician Assistant; ADMITTING PHYSICIAN Internal Medicine; ATTENDING PHYSICIAN Internal Medicine; EMERGENCY PHYSICIAN Emergency Medicine; FAMILY PHYSICIAN Family Medicine; OTHER PHYSICIAN Internal Medicine Hematology & Oncology; OTHER PHYSICIAN Psychiatry & Neurology Neurology; OTHER PHYSICIAN Thoracic Surgery (Cardiothoracic Vascular Surgery)
PROC: 3E0334Z Introduction of Serum, Toxoid and Vaccine into Peripheral Vein, Percutaneous Approach (ICD-10-PCS; 2024-07-03)
DX: G70.00 Myasthenia gravis without (acute) exacerbation (principal); H00.012 Hordeolum externum right lower eyelid; H53.2 Diplopia; T38.0X5A Adverse effect of glucocorticoids and synthetic analogues, initial encounter; R73.9 Hyperglycemia, unspecified; D38.4 Neoplasm of uncertain behavior of thymus; Z86.718 Personal history of other venous thrombosis and embolism; Z88.0 Allergy status to penicillin
CPT/HCPCS: 70450; 70496; 70498; 70553; 71260; 80048; 80053; 80061; 82607; 82728; 82746; 82962; 83036; 84443; 85025; 85652; 86038; 86041; 86618; 86803; 92610; 95907; 95937; 97166; 99284; A9575; J1569; Q9967

== ENCOUNTER 2024-12-23 06:13 | Day surgery (SDC) | payer MEDICARE, OTHER, SELFPAY | END 2024-12-23 09:34 | disposition home or self-care (01) | LOC: GI 06:13 | PROVIDERS: ATTENDING PHYSICIAN Internal Medicine Gastroenterology | DX: Z12.11 Encounter for screening for malignant neoplasm of colon (principal); K64.8 Other hemorrhoids; K57.30 Diverticulosis of large intestine without perforation or abscess without bleeding; D12.3 Benign neoplasm of transverse colon; D12.4 Benign neoplasm of descending colon; K63.5 Polyp of colon; Z86.0101 Personal history of adenomatous and serrated colon polyps | CPT/HCPCS: 45385; 88305 ==